=== PATIENT | male | born 1965 | race African-American/Black ===

== ENCOUNTER 2020-08-02 00:59 | Emergency (ER) | payer OTHER ==
[2020-08-02] MEDS ORDERED: LORazepam 2 MG/ML VIAL As Ordered ONE (01:02)
[2020-08-02] MEDS ORDERED: diphenhydrAMINE 50MG/ML VIAL (J1200) As Ordered ONE (01:03)
[2020-08-02] MEDS ORDERED: HALOPERIDOL 5MG/ML VIAL (J1630 PER 1) As Ordered ONE (01:03)
[2020-08-02] MEDS ORDERED: THIAMINE 200MG/2ML VIAL (J3411 PER 100MG) IV ONE (01:20)
[2020-08-02] MEDS ORDERED: NS 1,000 ML IV ONE (01:20)
[2020-08-02] MEDS ORDERED: BOOSTRIX/ADACEL VACCINE (DIPHTH/PERTUSS/ACELL/TETANUS) 0.5ML SYR IM ONE (01:50)
[2020-08-02 02:06] LABS: BASO % 0.4 % (0.0-1.0); EOS # 0.1 10^3/uL (0.0-0.5); EOS % 1.7 % (0.0-3.0); HEMATOCRIT 43.9 % (42.0-52.0); HEMOGLOBIN 13.6 g/dl (13.5-17.5); LYMPH # 4.1 10^3/uL (1.5-5.0); LYMPH % 52.4 % (24.0-44.0); MEAN CORPUSCULAR HEMOGLOBIN 27.3 pg (27.0-33.0); MEAN CORPUSCULAR VOLUME 88.2 fl (80.0-96.0); NEUTROPHILS # 2.5 10^3/uL (1.5-8.5); NEUTROPHILS % 32.2 % (36.0-66.0); PLATELET COUNT, AUTOMATED 227 10^3/uL (150-450); RED BLOOD COUNT 4.98 10^6/uL (4.30-6.10); WHITE BLOOD COUNT 7.8 10^3/uL (4.0-10.0)
[2020-08-02] MEDS ORDERED: diphenhydrAMINE 50MG/ML VIAL (J1200) IM STA (02:06)
[2020-08-02] MEDS ORDERED: HALOPERIDOL 5MG/ML VIAL (J1630 PER 1) IM STA (02:06)
[2020-08-02] MEDS ORDERED: LORazepam 2 MG/ML VIAL IM STA (02:06)
[2020-08-02 02:29] LABS: ACETAMINOPHEN LEVEL < 2.0 UG/ML (10.0-30.0); ALBUMIN 3.9 GM/DL (3.2-5.2); ALT/SGPT 82 U/L (12-78); BILIRUBIN,DIRECT < 0.1 MG/DL (0.0-0.2); BILIRUBIN,TOTAL 0.2 MG/DL (0.2-1.0); BLOOD UREA NITROGEN 15 MG/DL (7-18); CALCIUM LEVEL 8.4 MG/DL (8.5-10.1); CARBON DIOXIDE LEVEL 23 MEQ/L (21-32); CHLORIDE LEVEL 112 MEQ/L (98-107); CREATININE FOR GFR 0.95 MG/DL (0.70-1.30); ETHYL ALCOHOL (ETHANOL) 0.279 % (0.000-0.010); GLOMERULAR FILTRATION RATE > 60.0 (>56); GLUCOSE, FASTING 106 MG/DL (70-100); POTASSIUM SERUM 4.2 MEQ/L (3.5-5.1); SALICYLATE LEVEL < 1.7 MG/DL (5.0-30.0); SODIUM LEVEL 145 MEQ/L (136-145); TOTAL PROTEIN 7.2 GM/DL (6.4-8.2)
--- NOTE | 2020-08-02 03:56 | REPVR ---
PROCEDURE INFORMATION: Exam: CT Head without Contrast Exam date and time: 08/02/20 (3:09am) Age: 55 years old Clinical indication: Fall. Blunt trauma. TECHNIQUE: Imaging protocol: Computed tomography of the head without contrast. Radiation optimization: All CT scans at this facility use at least one of these dose optimization techniques: automated exposure control; mA and/or kV adjustment per patient size (includes targeted exams where dose is matched to clinical indication); or iterative reconstruction. COMPARISON: No relevant prior studies available FINDINGS: Brain: Unremarkable. No acute hemorrhage. Unremarkable white matter. No mass effect. Cerebral ventricles: No ventriculomegaly. Bones/joints: Unremarkable. No acute fracture. Paranasal sinuses: Visualized sinuses are unremarkable. No air-fluid levels. Mastoid air cells: Visualized mastoid air cells are well aerated. Soft tissues: Unremarkable. Other findings: Cerumen likely in each ext. auditory canal. IMPRESSION: No acute intracranial pathology is appreciated. Electronically signed by: Stacey Griggs On 08/02/2020 03:56:18 AM
--- NOTE | 2020-08-02 04:01 | REPVR ---
PROCEDURE INFORMATION: Exam: CT Cervical Spine without Contrast Exam date and time: 08/02/20 (3:09am) Age: 55 years old Clinical indication: Fall. Blunt trauma TECHNIQUE: Imaging protocol: Computed tomography images of the cervical spine without contrast. Radiation optimization: All CT scans at this facility use at least one of these dose optimization techniques: automated exposure control; mA and/or kV adjustment per patient size (includes targeted exams where dose is matched to clinical indication); or iterative reconstruction. COMPARISON: No relevant prior studies available FINDINGS: Vertebrae: No acute fracture. Satisfactory alignment. Discs/Spinal canal: No significant spinal canal stenosis. Soft tissues: Unremarkable. Lungs: Hazy parenchymal changes posteriorly at each lung apex. Other findings: Cerumen likely in each ext. auditory canal. IMPRESSION: No acute traumatic findings. Hazy parenchymal changes posteriorly at each lung apex -- perhaps old inflammatory changes. Mild acute upper lobe pneumonitis cannot be excluded. Electronically signed by: Stcaey Griggs On 08/02/2020 04:00:58 AM
--- NOTE | 2020-08-02 04:05 | REPVR ---
PROCEDURE INFORMATION: Exam: XR Left Hand Exam date and time: 08/02/20 (3:26am) Age: 55 years old Clinical indication: Fingertip avulsion TECHNIQUE: Imaging protocol: XR Left hand Views: 3 views COMPARISON: No relevant prior studies available FINDINGS: No acute fracture nor dislocation. Soft tissue injury involving the distal portion of the left 4th digit. No definite bone loss is seen. IMPRESSION: Soft tissue injury at the distal portion of the left 4th digit. No fracture nor dislocation. Electronically signed by: Stacey Griggs On 08/02/2020 04:05:04 AM
[2020-08-02 04:07] LABS: AMPHETAMINES LEVEL URINE NEGATIVE (NEGATIVE); BARBITURATES URINE NEGATIVE (NEGATIVE); BENZODIAZEPINES URINE NEGATIVE (NEGATIVE); CANNABINOIDS URINE NEGATIVE (NEGATIVE); COCAINE METABOLITE URINE NEGATIVE (NEGATIVE); METHADONE URINE NEGATIVE (NEGATIVE); OPIATES URINE NEGATIVE (NEGATIVE); PHENCYCLIDINE URINE NEGATIVE (NEGATIVE)
[2020-08-02] MEDS ORDERED: CEPH500C PO (07:23)
[2020-08-02] MEDS ORDERED: BACIOIN5 OP (07:29)
[2020-08-02 10:16] VITALS: BP 105/73
== END 2020-08-02 10:52 | disposition home or self-care (01) ==
LOC: M ED 00:59
DX: F10.129 Alcohol abuse with intoxication, unspecified (principal); Y90.1 Blood alcohol level of 20-39 mg/100 ml; G47.33 Obstructive sleep apnea (adult) (pediatric)
CPT/HCPCS: 70450; 72125; 73120; 80048; 80076; 80143; 80307; 82077; 85025; 90471; 90715; 93041; 94760; 96361; 96372; 96374; 99285; J1200; J1630; J2060; J3411